=== PATIENT | male | born 1960 | race Caucasian/White ===

== ENCOUNTER 2021-04-27 10:53 | Emergency (ER) | payer OTHER ==
[2021-04-27 12:29] LABS: BILIRUBIN NEGATIVE (NEGATIVE); BLOOD NEGATIVE Ery/uL (NEGATIVE); CLARITY HAZY (CLEAR); COLOR YELLOW (YELLOW); GLUCOSE (U) NORMAL (NORMAL); LEUKOCYTES NEGATIVE Leu/uL (NEGATIVE); NITRITE NEGATIVE (NEGATIVE); PROTEIN NEGATIVE (NEGATIVE); SPECIFIC GRAVITY 1.025 (1.001-1.030)
[2021-04-27 12:47] LABS: BASOPHIL 0.7 % (0-2); EOSINOPHIL 0.9 % (0-5); HCT 42.1 % (42.0-52.0); HGB 14.6 g/dl (13.2-18.0); LYMPHOCYTE 20.4 % (15-48); MCH 31.9 pg (25.0-31.0); MCHC 34.7 g/dL (32.0-36.0); MCV 91.9 fL (78.0-100.0); MONOCYTE 11.4 % (0-12); MPV 10.7 fL (6.0-9.5); NEUTROPHIL 66.1 % (41-80); NRBC 0; PLT 217 K/uL (150-400); RBC 4.58 M/uL (4.70-6.00); RDW 13.6 % (11.5-14.0); WBC 8.2 K/uL (4.0-10.5)
[2021-04-27 13:32] LABS: ALBUMIN 3.7 g/dL (3.4-5.0); BILIRUBIN - TOTAL 0.3 mg/dL (0.2-1.0); BUN/CREAT RATIO (CALC) 12.5 RATIO; CREATININE 1.12 mg/dL (0.67-1.17); GLOBULIN (CALCULATION) 2.9 g/dL; POTASSIUM 4.4 mmol/L (3.5-5.1); TOTAL PROTEIN 6.6 g/dL (6.4-8.2)
[2021-04-27] MEDS ORDERED: VENTOLIN HFA18 GM INH (16:43)
[2021-04-27] MEDS ORDERED: VIBRAMYCIN100 MG PO (16:43)
[2021-04-27] MEDS ORDERED: ROBAXIN750 MG PO (16:43)
[2021-04-27] MEDS ORDERED: NAPROXEN500 MG PO (16:43)
== END 2021-04-27 17:05 | disposition home or self-care (01) ==
LOC: FER 10:53
PROVIDERS: Emergency Medicine
DX: R10.9 Unspecified abdominal pain (principal); J90 Pleural effusion, not elsewhere classified; J98.11 Atelectasis
CPT/HCPCS: 36415; 71250; 80053; 81003; 83690; 84145; 84484; 85025; 85379; 93005; J1170; J2405; Q9967